=== PATIENT | female | born 1940 | race Caucasian/White ===

== ENCOUNTER 2018-02-21 08:50 | Outpatient (CLI) | payer OTHER | END 2018-02-21 09:06 | disposition home or self-care (01) | LOC: LAB 08:50 | DX: F41.8 Other specified anxiety disorders (principal); E55.9 Vitamin D deficiency, unspecified; E78.2 Mixed hyperlipidemia; Z13.820 Encounter for screening for osteoporosis ==

== ENCOUNTER 2018-03-13 13:28 | Outpatient (CLI) | payer OTHER | END 2018-03-13 13:58 | disposition home or self-care (01) | LOC: NUCLEAR 13:28 → EDBD 13:28 → NUCLEAR 13:58 | DX: M81.0 Age-related osteoporosis without current pathological fracture (principal) ==